=== PATIENT | female | born 1960 | race Caucasian/White ===

== ENCOUNTER 2020-07-18 03:21 | Emergency (ER) | payer SELFPAY ==
[~2020-07-18] VITALS: Ht 162.6 cm; Wt 88.0 kg
[2020-07-18 03:37] VITALS: BP 161/88
--- NOTE | 2020-07-18 05:13 | NUR ---
NA X 1
--- NOTE | 2020-07-18 05:53 | NUR ---
na x 2
--- NOTE | 2020-07-18 06:22 | NUR ---
na x 3
== END 2020-07-18 06:24 | disposition left against medical advice (07) ==
LOC: ED 04:00
DX: R21 Rash and other nonspecific skin eruption (principal); Z53.21 Procedure and treatment not carried out due to patient leaving prior to being seen by health care provider